=== PATIENT | male | born 1950 | race Hispanic/Latino ===

== ENCOUNTER 2023-05-11 13:38 | Outpatient (RCR) | payer MEDICARE ==
[~2023-05-11 13:38] MED LIST: AMLODIPINE BESYL5 MG PO; ASPIR 8181 MG PO; ATENOLOL25 MG PO; ATORVASTATIN CA40 MG PO; Aspirin PO; BYDUREON2 MG INJ; CYCLOBENZAPRINE10 MG PO; GABAPENTIN300 MG PO; GLIMEPERIDE PO; GLIMEPIRIDE2 MG PO; INDOMETHACIN25 MG PO; LORTAB 7.5-5001 EACH PO; LOSARTAN PO; LOSARTAN POTAS100 MG PO; LOSARTAN POTASS50 MG PO; LOVENOX40 MG/0.4 SC; METFORMIN HCL1000 MG PO; NAPROXEN500 MG PO; NORCO 7.5-3251 EACH PO; OMEPRAZOLE40 MG PO; SIMVASTATIN40 MG PO; TAMSULOSIN HCL0.4 MG PO; TRULICITY SC; TYLENOL PM PO; ULTRAM50 MG PO
== END 2023-05-18 ==
LOC: RESP 13:38
DX: J84.9 Interstitial pulmonary disease, unspecified (principal)
CPT/HCPCS: 94799

== ENCOUNTER 2023-06-07 16:05 | Outpatient (RCR) | payer MEDICARE | END 2023-06-17 | LOC: RESP 16:05 | PROVIDERS: ATTEND Internal Medicine | DX: J84.10 Pulmonary fibrosis, unspecified (principal); G62.9 Polyneuropathy, unspecified | CPT/HCPCS: 94626 ×3; G0238 ×3 ==

== ENCOUNTER 2023-08-23 17:10 | Emergency (ER) | payer MEDICARE ==
[~2023-08-23] VITALS: Ht 170.2 cm; Wt 124.7 kg
[2023-08-23 17:56] LABS: BASOPHILS # (AUTO) 0.1 (0.0-0.1); BASOPHILS % 0.7 % (0.0-1.0); EOSINOPHILS # (AUTO) 0.2 (0.0-0.4); EOSINOPHILS % 2.9 % (0.0-6.0); HEMATOCRIT 46.2 % (38.2-49.6); HEMOGLOBIN 15.1 g/dL (14.0-18.0); LYMPHOCYTES # (AUTO) 1.7 (1.0-3.2); LYMPHOCYTES % 20.7 % (18.0-39.1); MEAN CORPUSCULAR HEMOGLOBIN 33.9 pg (28-32); MEAN CORPUSCULAR HGB CONC 32.7 g/dL (31-35); MEAN CORPUSCULAR VOLUME 103.6 fL (81-99); MONOCYTES # (AUTO) 0.8 (0.2-0.8); MONOCYTES % 9.4 % (4.4-11.3); NEUTROPHILS # (AUTO) 5.5 (2.1-6.9); NEUTROPHILS % 65.9 % (38.7-80.0); PLATELET COUNT 155 x10e3/uL (140-360); RED BLOOD COUNT 4.46 x10e6/uL (4.3-5.7); RED CELL DISTRIBUTION WIDTH 12.2 % (11.7-14.4); WHITE BLOOD COUNT 8.39 x10e3/uL (4.8-10.8)
[2023-08-23 18:11] LABS: ALBUMIN 3.5 g/dL (3.5-5.0); ALBUMIN/GLOBULIN RATIO 0.9 (0.8-2.0); ANION GAP 14.8 mmol/L (8-16); CREATININE, SERUM 0.89 mg/dL (0.72-1.25); POTASSIUM 4.8 mmol/L (3.5-5.1); TOTAL PROTEIN 7.3 g/dL (6.5-8.1)
[2023-08-23 18:16] LABS: TROPONIN I 0.007 ng/mL (0-0.300)
[2023-08-23 19:25] VITALS: BP 100/76; PULSE 72; RESP 16; O2SAT 98
== END 2023-08-23 19:25 | disposition home or self-care (01) ==
LOC: ER 17:19
DX: R06.02 Shortness of breath (principal); R00.1 Bradycardia, unspecified; J84.10 Pulmonary fibrosis, unspecified; Z11.52 Encounter for screening for COVID-19; R94.31 Abnormal electrocardiogram [ECG] [EKG]; Z96.643 Presence of artificial hip joint, bilateral; Z96.653 Presence of artificial knee joint, bilateral
CPT/HCPCS: 36415; 71045; 80053; 82550; 83690; 83880; 84484; 85025; 93005; 99284; U0002

== ENCOUNTER 2023-10-18 12:48 | Outpatient (RCR) | payer MEDICARE | END 2023-11-16 | LOC: RESP 12:48 | PROVIDERS: ATTEND Internal Medicine | DX: J84.10 Pulmonary fibrosis, unspecified (principal) | CPT/HCPCS: 94626 ×7; G0238 ×8 ==

== ENCOUNTER 2023-12-20 13:23 | Outpatient (RCR) | payer MEDICARE | END 2024-01-16 | LOC: RESP 13:23 | PROVIDERS: ATTEND Family Medicine | DX: J84.9 Interstitial pulmonary disease, unspecified (principal) | CPT/HCPCS: 94626; G0238 ==